=== PATIENT | male | born 1965 | race Caucasian/White ===

== ENCOUNTER 2018-02-09 10:22 | Emergency (ER) | payer SELFPAY ==
[~2018-02-09] VITALS: Ht 175.3 cm; Wt 77.1 kg
[~2018-02-09 10:22] MED LIST: OMEP20CA74 PO
[2018-02-09] MEDS ORDERED: DEXTROSE 50% SYRINGE 50 ML IV ONE (10:40)
[2018-02-09] MEDS ORDERED: DEXTROSE (50%) 50ML SYRG IV ONE ×2 (10:45→11:45)
[2018-02-09 11:21] LABS: Hemoglobin 8.5 g/dL (13.5-17.5); White Blood Cell 13.6 10^3/uL (4.4-10.8)
[2018-02-09 11:23] LABS: Hematocrit 28.2 % (41.0-53.0); Mean Corpuscular Hemoglobin 20.9 pg (28.0-32.0); Mean Corpuscular Hgb Conc. 30.2 g/dL (32.0-36.0); Mean Corpuscular Volume 69.3 fL (80.0-100.0); Platelet Count (auto) 551 10^3/uL (140-450); Red Blood Cells 4.07 10^6/uL (4.5-5.90)
[2018-02-09 11:33] LABS: Red Cell Distribution Width 21.7 % (11.8-14.3)
[2018-02-09 11:34] LABS: Basophils % (manual) 0 (0.0-2.0); Blast Cells 0; Eosinophils % (manual) 0 (0-7); Metamyelocytes % 0; Myelocytes % 0; Promyelocytes % 0; Reactive Lymphocytes 0
[2018-02-09 11:49] LABS: BUN/Creatinine Ratio 6.9; Bilirubin, Total 0.7 mg/dL (0.2-1.0); Calcium 8.4 mg/dL (8.5-10.1); Magnesium 2.5 mg/dL (1.6-2.6); Potassium 5.1 mmol/L (3.5-5.1); Total Protein 7.4 g/dL (6.4-8.2)
[2018-02-09] MEDS ORDERED: SODIUM CHLORIDE 0.9% 1,000 ML IV ONE ×2 (12:13)
[2018-02-09] MEDS ORDERED: LORazepam 2MG/ML-1ML VIAL IV ONE (12:15)
[2018-02-09 12:48] LABS: Band Neutrophils % (manual) 1; Lymphocytes % (manual) 8 (10.0-50.0); Monocytes % (manual) 8 (0-12)
[2018-02-09 13:14] LABS: INR 0.98 (0.9-1.15); Partial Thromboplastin Time 29.1 sec (23.78-33.04); Prothrombin Time 10.5 sec (9.27-12.13)
[2018-02-09 15:49] VITALS: BP 103/61
[2018-02-09] MEDS ORDERED: PIPERACILLIN-TAZOB 3.375GM 100 ML IV ONE (16:00)
[2018-02-09] MEDS ORDERED: CLINDAMYCIN 900MG IV 50 ML IV ONE (16:00)
[2018-02-09] MEDS ORDERED: ENOXAPARIN SOD 80 MG/0.8ML SYRINGE SC ONE (16:00)
[2018-02-10] MEDS ORDERED: LEV100T PO (23:15)
[2018-02-10] MEDS ORDERED: LISD60CA PO (23:15)
== END 2018-02-09 16:50 | disposition left against medical advice (07) ==
LOC: EDBD 10:22 → ER 10:29
DX: A41.9 Sepsis, unspecified organism (principal); I21.4 Non-ST elevation (NSTEMI) myocardial infarction; F17.210 Nicotine dependence, cigarettes, uncomplicated; F12.10 Cannabis abuse, uncomplicated; F15.10 Other stimulant abuse, uncomplicated; Z53.29 Procedure and treatment not carried out because of patient's decision for other reasons; V29.40XA Motorcycle driver injured in collision with unspecified motor vehicles in traffic accident, initial encounter; Y93.89 Activity, other specified; Y99.8 Other external cause status; Y92.410 Unspecified street and highway as the place of occurrence of the external cause
CPT/HCPCS: 36415; 70450; 71045; 74176; 80053; 82962; 83735; 84484; 85007; 85027; 85610; 85730; 96374; 96375; 99285; J2060; J7042; 93005

== ENCOUNTER 2018-02-10 05:55 | Inpatient (IN) | payer MEDICARE ==
[~2018-02-10] VITALS: Ht 177.8 cm; Wt 73.3 kg
[2018-02-10] MEDS ORDERED: SODIUM CHLORIDE 0.9% 1,000 ML IV ONE (06:57)
[2018-02-10 12:09] LABS: Hemoglobin 9.7 g/dL (13.5-17.5); White Blood Cell 10.1 10^3/uL (4.4-10.8)
[2018-02-10 12:12] LABS: Hematocrit 32.7 % (41.0-53.0); Mean Corpuscular Hemoglobin 20.2 pg (28.0-32.0); Mean Corpuscular Hgb Conc. 29.6 g/dL (32.0-36.0); Mean Corpuscular Volume 68.3 fL (80.0-100.0); Platelet Count (auto) 677 10^3/uL (140-450)
[2018-02-10 12:15] LABS: Red Cell Distribution Width 21.9 % (11.8-14.3)
[2018-02-10 12:16] LABS: Band Neutrophils % (manual) 0; Basophils % (manual) 0 (0.0-2.0); Blast Cells 0; Metamyelocytes % 0; Myelocytes % 0; Promyelocytes % 0; Reactive Lymphocytes 0
[2018-02-10 12:44] LABS: Albumin 2.5 g/dL (3.4-5.0); Potassium 4.4 mmol/L (3.5-5.1)
[2018-02-10 12:47] LABS: BUN/Creatinine Ratio 12.4
[2018-02-10 12:51] LABS: Bilirubin, Total 0.3 mg/dL (0.2-1.0)
[2018-02-10 13:00] LABS: Eosinophils % (manual) 2 (0-7); Lymphocytes % (manual) 8 (10.0-50.0); Monocytes % (manual) 5 (0-12)
[2018-02-10] MEDS ORDERED: NITROGLYCERIN 0.4 MG SL TAB SL PRN (13:45)
[2018-02-10] MEDS ORDERED: cefTRIAXone 1GM/10ml IVPUSH 10 ML IV ONE (13:45)
[2018-02-10] MEDS ORDERED: DOCUSATE SOD 100 MG CAP PO PRN (13:45)
[2018-02-10] MEDS ORDERED: ACETAMINOPHEN 325 MG TAB PO PRN (13:45)
[2018-02-10] MEDS ORDERED: TEMAZEPAM 15 MG CAP PO PRN (13:45)
[2018-02-10] MEDS ORDERED: PANTOPRAZOLE 40 MG TAB PO ONE (13:45)
[2018-02-10] MEDS ORDERED: ONDANSETRON HCL 4 MG/2 ML VIAL IV PRN (13:45)
[2018-02-10] MEDS ORDERED: MORPHINE SULFATE 4 MG/ML SYR/VIAL IV PRN (13:45)
[2018-02-10 14:48] LABS: Urine Bacteria NONE SEEN /hpf (None Seen); Urine Blood 1+ /uL (Negative); Urine Hyaline Cast FEW /lpf (0 - 2); Urine Specific Gravity 1.016 (1.001-1.035); Urine WBC 1 /hpf (0 - 3)
[2018-02-10] MEDS: CLINDAMYCIN 300MG IV 50 ML IV SCH ×2 (14:59→22:04)
[2018-02-10] MEDS: SODIUM CHLOR 0.9% PF (SALINE LOCK) 10ML VIAL/SYR IV SCH ×2 (14:59→20:49)
[2018-02-10 15:12] LABS: Alcohol, Urine < 3.0 mg/dL (0-5); Amphetamine Screen, Urine POSITIVE (NEGATIVE); Barbiturate Scree,Urine NEGATIVE (NEGATIVE); Benzodiazephine Screen, Urine NEGATIVE (NEGATIVE); Cannabinoid Screen, Urine NEGATIVE (NEGATIVE); Cocaine Screen, Urine NEGATIVE (NEGATIVE); Opiate Scree,Urine POSITIVE (NEGATIVE); Phencyclidine Screen, Urine NEGATIVE (NEGATIVE)
[2018-02-10] MEDS: Ensure Enlive Strawberry 8oz Bottle PO SCH ×2 (18:01→20:49)
[2018-02-10 20:40] LABS: % Iron Saturation 8.4 % (20-55)
[2018-02-10 22:00] VITALS: BP 130/68
[2018-02-10] MEDS ORDERED: LISD60CA PO (23:15)
[2018-02-10] MEDS ORDERED: LEV100T PO (23:15)
[2018-02-10 23:40] VITALS: BP 130/68
[2018-02-11 05:00] VITALS: BP 135/65
[2018-02-11] MEDS: CLINDAMYCIN 300MG IV 50 ML IV SCH ×3 (05:35→21:34)
[2018-02-11] MEDS: Ensure Enlive Strawberry 8oz Bottle PO SCH ×4 (05:35→21:35)
[2018-02-11] MEDS: SODIUM CHLOR 0.9% PF (SALINE LOCK) 10ML VIAL/SYR IV SCH ×3 (05:35→21:34)
[2018-02-11 07:26] LABS: White Blood Cell 9.1 10^3/uL (4.4-10.8)
[2018-02-11 07:46] LABS: Albumin 2.3 g/dL (3.4-5.0); BUN/Creatinine Ratio 16.6; Bilirubin, Total 0.3 mg/dL (0.2-1.0); Calcium 8.1 mg/dL (8.5-10.1); Potassium 4.6 mmol/L (3.5-5.1); Total Protein 6.6 g/dL (6.4-8.2)
[2018-02-11 07:50] LABS: Hematocrit 32.2 % (41.0-53.0); Hemoglobin 9.9 g/dL (13.5-17.5); Mean Corpuscular Hemoglobin 20.7 pg (28.0-32.0); Mean Corpuscular Hgb Conc. 30.9 g/dL (32.0-36.0); Platelet Count (auto) 685 10^3/uL (140-450)
[2018-02-11 08:06] LABS: Red Cell Distribution Width 21.4 % (11.8-14.3)
[2018-02-11 08:07] LABS: Band Neutrophils % (manual) 0; Basophils % (manual) 0 (0.0-2.0); Blast Cells 0; Metamyelocytes % 0; Myelocytes % 0; Promyelocytes % 0; Reactive Lymphocytes 0
[2018-02-11 08:37] LABS: Eosinophils % (manual) 2 (0-7); Lymphocytes % (manual) 12 (10.0-50.0); Monocytes % (manual) 14 (0-12)
[2018-02-11 09:00] VITALS: BP 136/66
[2018-02-11] MEDS: PANTOPRAZOLE 40 MG TAB PO SCH (10:32)
[2018-02-11] MEDS: MULTIPLE VITAMIN TAB PO SCH (10:32)
[2018-02-11] MEDS: cefTRIAXone 1GM/10ml IVPUSH 10 ML IV SCH (10:32)
[2018-02-11 12:00] VITALS: BP 148/76
[2018-02-11] MEDS ORDERED: LORazepam 2MG/ML-1ML VIAL IV PRN (13:00)
[2018-02-11 17:00] VITALS: BP 131/75
[2018-02-11 22:00] VITALS: BP 155/55
[2018-02-12 05:00] VITALS: BP 159/90
[2018-02-12] MEDS: SODIUM CHLOR 0.9% PF (SALINE LOCK) 10ML VIAL/SYR IV SCH ×3 (05:36→21:43)
[2018-02-12] MEDS: CLINDAMYCIN 300MG IV 50 ML IV SCH ×3 (05:36→21:43)
[2018-02-12] MEDS: Ensure Enlive Strawberry 8oz Bottle PO SCH ×4 (05:37→21:43)
[2018-02-12 09:00] VITALS: BP 164/76
[2018-02-12 09:34] LABS: Hepatitis B Surface Antibody Negative
[2018-02-12] MEDS: MULTIPLE VITAMIN TAB PO SCH (09:41)
[2018-02-12] MEDS: PANTOPRAZOLE 40 MG TAB PO SCH (09:41)
[2018-02-12] MEDS: cefTRIAXone 1GM/10ml IVPUSH 10 ML IV SCH (09:41)
[2018-02-12 09:55] LABS: Hepatitis A Total Antibody Negative
[2018-02-12 10:06] LABS: Folate (Folic Acid) 19.34 ng/mL (5.38-24)
[2018-02-12 10:54] LABS: Hepatitis B Surface Antigen Negative (Negative)
[2018-02-12 10:55] LABS: Hepatitis B Core Total AB Positive; Hepatitis C Antibody Positive (Negative)
[2018-02-12] MEDS: SODIUM FERR GLUC 62.5MG/5ML 125 MG in SODIUM CHL 0.9% 100 ML IV SCH (11:40)
[2018-02-12 12:40] VITALS: BP 164/97
[2018-02-12 17:00] VITALS: BP 112/78
[2018-02-12] MEDS: HYDROcodone-ACET 5/325MG TAB PO PRN (21:58)
[2018-02-12 22:00] VITALS: BP 129/70
[2018-02-12 22:42] LABS: Protein, Urine 22.3 mg/dL (0.0-11.9)
[2018-02-13 03:06] LABS: RPR Non Reactive (Non Reactive)
[2018-02-13 05:09] VITALS: BP 132/81
[2018-02-13] MEDS: SODIUM CHLOR 0.9% PF (SALINE LOCK) 10ML VIAL/SYR IV SCH ×3 (05:33→22:00)
[2018-02-13] MEDS: Ensure Enlive Strawberry 8oz Bottle PO SCH ×4 (05:33→22:00)
[2018-02-13] MEDS: CLINDAMYCIN 300MG IV 50 ML IV SCH ×3 (05:33→22:45)
[2018-02-13 08:24] VITALS: BP 141/88
[2018-02-13] MEDS: MULTIPLE VITAMIN TAB PO SCH ×2 (09:11→18:51)
[2018-02-13] MEDS: PANTOPRAZOLE 40 MG TAB PO SCH (09:11)
[2018-02-13] MEDS: cefTRIAXone 1GM/10ml IVPUSH 10 ML IV SCH (09:11)
[2018-02-13] MEDS: SODIUM FERR GLUC 62.5MG/5ML 125 MG in SODIUM CHL 0.9% 100 ML IV SCH (12:14)
[2018-02-13] MEDS: HYDROcodone-ACET 5/325MG TAB PO PRN ×3 (12:15→23:00)
[2018-02-13 13:00] VITALS: BP 147/82
[2018-02-13 17:06] VITALS: BP 136/78
[2018-02-13] MEDS ORDERED: NICOTINE 21MG/24 HR TOPICAL PATCH TD ONE (17:45)
[2018-02-13 22:00] VITALS: BP 144/76
[2018-02-13] MEDS: ASCORBIC ACID 500 MG TAB PO SCH (22:45)
[2018-02-14] MEDS: MORPHINE SULFATE 4 MG/ML SYR/VIAL IV PRN ×2 (04:43→10:08)
[2018-02-14 05:00] VITALS: BP 152/83
[2018-02-14] MEDS: Ensure Enlive Strawberry 8oz Bottle PO SCH ×2 (06:00→12:00)
[2018-02-14] MEDS: SODIUM CHLOR 0.9% PF (SALINE LOCK) 10ML VIAL/SYR IV SCH ×2 (06:00→14:00)
[2018-02-14] MEDS: CLINDAMYCIN 300MG IV 50 ML IV SCH ×2 (07:03→14:00)
[2018-02-14 09:00] VITALS: BP 119/66
[2018-02-14] MEDS: MULTIPLE VITAMIN TAB PO SCH ×2 (09:51→10:00)
[2018-02-14] MEDS: ASCORBIC ACID 500 MG TAB PO SCH (09:51)
[2018-02-14] MEDS: cefTRIAXone 1GM/10ml IVPUSH 10 ML IV SCH (09:51)
[2018-02-14] MEDS: PANTOPRAZOLE 40 MG TAB PO SCH (09:53)
[2018-02-14] MEDS ORDERED: NICOTINE 21MG/24 HR TOPICAL PATCH TD SCH (10:00)
[2018-02-14] MEDS: SODIUM FERR GLUC 62.5MG/5ML 125 MG in SODIUM CHL 0.9% 100 ML IV SCH (12:00)
[2018-02-14 13:00] VITALS: BP 126/69
[2018-02-14 14:07] VITALS: BP 119/66
== END 2018-02-14 14:30 | disposition home or self-care (01) | DRG 602 ==
LOC: ER 05:55 → TELE 05:56 → TELE-WESTW 21:46
PROVIDERS: ADMIT Internal Medicine; ATTEND Family Medicine
DX: L03.113 Cellulitis of right upper limb (principal); N17.0 Acute kidney failure with tubular necrosis; E87.1 Hypo-osmolality and hyponatremia; E44.0 Moderate protein-calorie malnutrition; N18.4 Chronic kidney disease, stage 4 (severe); B19.10 Unspecified viral hepatitis B without hepatic coma; C81.90 Hodgkin lymphoma, unspecified, unspecified site; R65.10 Systemic inflammatory response syndrome (SIRS) of non-infectious origin without acute organ dysfunction; R74.8 Abnormal levels of other serum enzymes; E03.9 Hypothyroidism, unspecified; S46.811A Strain of other muscles, fascia and tendons at shoulder and upper arm level, right arm, initial encounter; E83.51 Hypocalcemia; K21.9 Gastro-esophageal reflux disease without esophagitis; B19.20 Unspecified viral hepatitis C without hepatic coma; D50.9 Iron deficiency anemia, unspecified; E05.90 Thyrotoxicosis, unspecified without thyrotoxic crisis or storm; N28.1 Cyst of kidney, acquired; I08.0 Rheumatic disorders of both mitral and aortic valves; F10.10 Alcohol abuse, uncomplicated; F15.10 Other stimulant abuse, uncomplicated; S40.811A Abrasion of right upper arm, initial encounter; F17.210 Nicotine dependence, cigarettes, uncomplicated; Z59.0 Homelessness; Z79.899 Other long term (current) drug therapy; Z82.49 Family history of ischemic heart disease and other diseases of the circulatory system; Z83.3 Family history of diabetes mellitus; Z85.72 Personal history of non-Hodgkin lymphomas; Z68.23 Body mass index [BMI] 23.0-23.9, adult; V29.9XXA Motorcycle rider (driver) (passenger) injured in unspecified traffic accident, initial encounter; Y93.89 Activity, other specified; Y92.89 Other specified places as the place of occurrence of the external cause; Y99.8 Other external cause status; Z80.9 Family history of malignant neoplasm, unspecified
CPT/HCPCS: 36415; 71045; 76775; 80053; 80307; 81001; 82550; 82570; 82607; 82746; 83540; 83550; 84156; 84300; 84443; 84484; 85007; 85027; 86160; 86592; 86703; 86704; 86706; 86708; 86803; 87040; 87077; 87086; 87186; 87205; 87340; 93306; 96361; 96374; J0696; J3490

== ENCOUNTER 2018-03-30 22:20 | Emergency (ER) | payer MEDICARE ==
[~2018-03-30] VITALS: Ht 175.3 cm; Wt 63.5 kg
[~2018-03-30 22:20] MED LIST changes: +LEV100T PO; +LISD60CA PO
[2018-03-30 22:57] VITALS: BP 109/66
== END 2018-03-30 22:41 | disposition left against medical advice (07) ==
LOC: ER 22:20
DX: Z01.818 Encounter for other preprocedural examination (principal); Z53.21 Procedure and treatment not carried out due to patient leaving prior to being seen by health care provider

== ENCOUNTER 2019-02-07 06:35 | Emergency (ER) | payer SELFPAY ==
[~2019-02-07] VITALS: Ht 175.3 cm; Wt 74.8 kg
[2019-02-07] MEDS ORDERED: SODIUM CHLORIDE 0.9% 1,000 ML IV ONE (07:14)
[2019-02-07] MEDS ORDERED: HYDROmorphone HCL 2 MG/ML VL IV ONE ×2 (07:15→14:15)
[2019-02-07] MEDS ORDERED: METOCLOPRAMIDE HCL 5MG/ml INJ 2ml VIAL IV ONE (07:15)
[2019-02-07] MEDS ORDERED: TETANUS-DIPTH-ACEL PERTUSSIS 0.5ML SYRG IM ONE (07:15)
[2019-02-07 08:15] LABS: Hemoglobin 10.3 g/dL (13.5-17.5); Mean Corpuscular Hemoglobin 20.8 pg (28.0-32.0); Red Blood Cells 4.94 10^6/uL (4.5-5.90)
[2019-02-07 08:18] LABS: Hematocrit 33.9 % (41.0-53.0); Mean Corpuscular Hgb Conc. 30.4 g/dL (32.0-36.0); Mean Corpuscular Volume 68.6 fL (80.0-100.0); Platelet Count (auto) 265 10^3/uL (140-450); White Blood Cell 19.4 10^3/uL (4.4-10.8)
[2019-02-07 08:26] LABS: Red Cell Distribution Width 26.4 % (11.8-14.3)
[2019-02-07 08:27] LABS: Basophils % (manual) 0 (0.0-2.0); Blast Cells 0; Eosinophils % (manual) 0 (0-7); Metamyelocytes % 0; Myelocytes % 0; Promyelocytes % 0; Reactive Lymphocytes 0
[2019-02-07 08:36] LABS: Albumin 3.4 g/dL (3.4-5.0); BUN/Creatinine Ratio 23.9; Bilirubin, Total 0.5 mg/dL (0.2-1.0); Calcium 9.1 mg/dL (8.5-10.1); Magnesium 2.6 mg/dL (1.6-2.6); Total Protein 7.6 g/dL (6.4-8.2)
[2019-02-07] MEDS ORDERED: LORazepam 2MG/ML-1ML VIAL IV ONE (09:00)
[2019-02-07 10:10] LABS: Urine Bacteria NONE SEEN /hpf (None Seen); Urine Blood 2+ /uL (Negative); Urine Specific Gravity 1.022 (1.001-1.035); Urine WBC 2 /hpf (0 - 3)
[2019-02-07 10:41] LABS: Alcohol, Urine < 3.0 mg/dL (0-5); Amphetamine Screen, Urine POSITIVE (NEGATIVE); Barbiturate Scree,Urine NEGATIVE (NEGATIVE); Benzodiazephine Screen, Urine NEGATIVE (NEGATIVE); Cannabinoid Screen, Urine NEGATIVE (NEGATIVE); Cocaine Screen, Urine NEGATIVE (NEGATIVE); Opiate Scree,Urine NEGATIVE (NEGATIVE); Phencyclidine Screen, Urine NEGATIVE (NEGATIVE)
[2019-02-07 10:46] LABS: Band Neutrophils % (manual) 2; Lymphocytes % (manual) 4 (10.0-50.0); Monocytes % (manual) 5 (0-12)
[2019-02-07] MEDS ORDERED: PROMETHAZINE HCL 25 MG/ML 1ML ONE (14:10)
[2019-02-07] MEDS ORDERED: HYDROmorphone HCL 2 MG/ML VL ONE (14:10)
[2019-02-07] MEDS ORDERED: PROMETHAZINE HCL 25 MG/ML 1ML IV ONE (14:15)
[2019-02-07 15:31] VITALS: BP 106/79
== END 2019-02-07 15:55 | disposition short-term general hospital (02) ==
LOC: ER 06:35 → EDBD 06:35 → ER 15:55
DX: S22.41XA Multiple fractures of ribs, right side, initial encounter for closed fracture (principal); S42.114A Nondisplaced fracture of body of scapula, right shoulder, initial encounter for closed fracture; S12.9XXA Fracture of neck, unspecified, initial encounter; S22.008A Other fracture of unspecified thoracic vertebra, initial encounter for closed fracture; S32.020A Wedge compression fracture of second lumbar vertebra, initial encounter for closed fracture; S22.080A Wedge compression fracture of T11-T12 vertebra, initial encounter for closed fracture; S89.92XA Unspecified injury of left lower leg, initial encounter; N18.4 Chronic kidney disease, stage 4 (severe); I25.2 Old myocardial infarction; F15.10 Other stimulant abuse, uncomplicated; F17.290 Nicotine dependence, other tobacco product, uncomplicated; V86.56XA Driver of dirt bike or motor/cross bike injured in nontraffic accident, initial encounter; Y93.89 Activity, other specified; Y99.8 Other external cause status; Y92.89 Other specified places as the place of occurrence of the external cause
CPT/HCPCS: 32551; 36415; 70450; 71045; 71250; 72125; 72128; 72131; 73562; 80053; 80307; 81001; 83735; 85007; 85027; 90471; 90715; 93005; 96374; 96375; 96376; 99291; J1170; J2060; J2550; J2765